=== PATIENT | female | born 1980 | race Caucasian/White ===

== ENCOUNTER 2018-09-04 13:14 | Emergency (ER) | payer OTHER, MEDICAID, SELFPAY ==
[2018-09-04 13:15] VITALS: BP 135/45; PULSE 92; RESP 15; TEMP 36.7; O2SAT 97; BMI 32.9
[2018-09-04 13:49] LABS: Add Manual Diff / Slide Review NO; Basophils Absolute Auto 100 /uL (0-100); Basophils Percent Auto 0.8 % (0-2); Eosinophils Absolute Auto 100 /uL (0-450); Eosinophils Percent Auto 1.8 % (2-4); Hemoglobin 13.2 g/dL (12.0-16.0); Lymphocytes Absolute Auto 2100 /uL (1100-4500); Lymphocytes Percent Auto 29.5 % (25-40); Mean Corpuscular HGB Conc 33.7 % (30-36); Mean Corpuscular Hemoglobin 30.7 PG (26-34); Mean Corpuscular Volume 91.1 fL (80-100); Monocytes Absolute Auto 400 /uL (0-900); Monocytes Percent Auto 5.2 % (3-14); Neutrophils Absolute Auto 4500 /uL (1500-7000); Neutrophils Percent Auto 62.7 % (50-75); Platelet Count 287 X10^3/uL (150-400); Red Blood Cell Count 4.28 X10^6/uL (4.0-5.2); Red Cell Distribution Width 13.1 % (11.6-14.8); White Blood Cell Count 7.2 X10^3/uL (4.5-11.0)
--- NOTE | 2018-09-04 13:52 | PC.NURSE ---
Records requested from [facility] as patient has been seen there for same 5 times in past few weeks
[2018-09-04 13:58] LABS: Urine Amphetamines Negative (Negative); Urine Barbiturates Negative (Negative); Urine Cocaine Negative (Negative); Urine MDMA Negative (Negative); Urine Methamphetamines Negative (Negative); Urine Morphine/Opi cutoff 2000 Negative (Negative); Urine Phencyclidine Negative (Negative); Urine Tetrahydrocannabinol Negative (Negative)
[2018-09-04 13:59] LABS: Urine Benzodiazepines Negative (Negative); Urine Methadone Negative (Negative); Urine Oxycodone Negative (Negative); Urine Tricyclic Antidepressant Negative (Negative)
[2018-09-04 14:01] LABS: Acetaminophen < 10 ug/mL (10-30); Alanine Aminotransferase 16 IU/L (9-52); Albumin Globulin Ratio 1.3 (1.0-2.8); Alkaline Phosphatase 68 U/L (38-126); Aspartate Aminotransferase 17 IU/L (14-36); Bilirubin Total 0.3 mg/dL (0.2-1.3); Blood Urea Nitrogen 7 mg/dL (7-17); Calcium 9.3 mg/dL (8.4-10.2); Carbon Dioxide 29 mmol/L (22-32); Chloride 102 mmol/L (98-107); Estimated Glomerular Filt Rate > 60.0 mL/min (>60); Ethanol (ETOH) < 10 mg/dL; Globulin 3.2 g/dL (1.7-4.1); Glucose 124 mg/dL (70-100); HEMOLYSIS < 15 (0-50); Potassium 3.9 mmol/L (3.4-5.1); Salicylate < 1.0 mg/dL (<20); Sodium 137 mmol/L (137-145); Total Protein 7.2 g/dL (6.3-8.2)
--- NOTE | 2018-09-04 14:03 | PC.NURSE ---
ROTARY SAW OPERATOR at bedside for evaluation
[2018-09-04 14:40] LABS: Thyroid Stimulating Hormone 1.02 uIU/mL (0.47-4.68)
--- NOTE | 2018-09-04 15:12 | CM.SWNOTE ---
DCP initial Assessment: CANCER PROGRAM CONSULTANT reviewed chart and met with pt to assess for voluntary psychiatric hospitalization. PCP: Pt does not have a PCP. Insurance: [employer] Pt presents to the ED expressing not feeling right in the head. This is her 6th presentation to the emergency room in the last week, having gone to the [place] ED 5-times last week, now here at [facility] for the same complaints. She denies suicidal ideation, drug or alcohol use. She was not found to be a candidate for inpt psych hospitalization by the DCR, Chris, in [place], and was offered outpatient behavioral health services, which she did not follow through on. She recently lost her housing, her child was taken into custody by CPS, she has no money or local friends/family. She presents as detached, flat affect, vague in interview. She is a poor historian and seems to lack insight into the factors which led up to the situation that she is now in. She has had 3-prior inpt hospitalizations in [place], however was not able to provide details, a diagnosis or medication history. She is not currently taking any medications at this time. Her goal is to get housing, a job, and to get her son back into her own custody. She feels that this not feeling right in the head is not consistent, but happens intermittently over time. Plan: [facility] is seeking crisis placement for stabilization. DCP pending. Discharge Planning/Care Management ED Crisis Response Assessment Start: 09/04/18 14:50 Freq: Status: Active Protocol: Document 09/04/18 14:50 [facility] (Rec: 09/04/18 15:11 DPL [id number]) ED Crisis Response Assessment CANCER PROGRAM CONSULTANT Assessment Type Mental Health Reason for CANCER PROGRAM CONSULTANT Referral Assess for suicidal ideation, voluntary MH hospitalization. Referred by ED provider, Brandi Del Rio Presenting Problem Pt presents to the ED stating she doesn't feel right in the head, and is requesting voluntary psychiatric placement. She is currently homeless, has been living in a longterm in [place] for the last week, however felt it was too noisy and crowded. She expresses feeling anxious and depressed, feeling that it 's situational. Mental health diagnosis Pt presents with flat affect, is vague in her responses to questions and seems a poor historian of recent events in her life. She states that she has had 3-prior psychiatric hospitalizations while living in [place], but would not discuss details. She is unable to remember any mental health diagnosis from those hospitalizations, and is not currently taking any psychiatric medications. She states that she had been on something previously, however it's been over a year since has taken any medications relating to depression/anxiety . She denies hallucinations, is oriented to self, place and time. She denies suicidal/ homicidal ideation. She denies any drug or alcohol use. [facility] check No: Pt was assesses by a DCR in [place], referred to Suicidal thoughts No Past Suicidal thoughts No Current Suicidal thoughts No Prior Suicide attempts No Current plan for self harm No Access to guns and weapons No Thoughts of harm to others No Past thoughts of harm to others No Current thoughts of harming others No Prior attempts to harm others No Current plan to harm others No Current Risk factors Recent trauma exposure Recent job loss Legal concerns Financial difficulties Marital and family difficulties Risk factor comments Pt recently relocated to [place] from [place] after visiting her brother in the area and decided she liked it. She moved with her 12-year old son, found an apartment and quickly lost it. She came to the area with no money, resources or plan. She was then homeless with her son, until he was taken away by CPS about 1-month ago. She presented to the ED at [facility] in [place] 5-times last week, each time seeking benzodiazapines, complaining of insomnia and not being able to sleep at the longterm. She asked repeatedly to be hospitalized in a psychiatric hospital maybe for a week. She has not expressed any suicidal ideation or intent to harm herself at any of these ED visits. 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 She states that she was dizzy, nauseous, and unable to work, thus she was fired. She has no money, no local friends or family, and is homeless. She has not followed up with community resources offered to her in [place]. In fact , she did not go to the scheduled behavioral health appt. that the ED staff had set-up for her. Relevant Medical History Pt denies any medical issues at this time, and is vague in providing any substantial history. Crisis Plan [facility] is seeking voluntary placement for pt, however it is not known if she will meet criteria for in patient placement. Resources Provided Crisis line phone number, local longterm information, possible placement if available bed is found and she is accepted for admission. Additional Comment D/C plan is process. ED Psychiatric Symptoms Assessment Start: 09/04/18 13:22 Freq: Status: Active Protocol: Document 09/04/18 13:25 [facility] (Rec: 09/04/18 13:42 [facility] [id number]) Psychiatric Symptoms Assessment Symptoms/Complaint States nausea nad I dont feel right. I need to be admitted somewhere Duration Constant History Of Same Yes Context Unknown Improves With Nothing Worsens With Nothing Associated Symptoms Denies Other Symptoms Details of Plan Denies SI or HI. States simply that she doesnt feel right. Nauseated and feels confused. Wants inpatient stay as thinks that will be helpful Level of Consciousness Alert Appropriate Awake Patient Orientation Name Age Birthday Month Date Year Day of Week Place Situation Patient Behavior/[place]ood [place] Ability to Follow Directions Excellent Patient Cognition Impaired No Affect Description Calm [place] Patient Appearance Well Groomed Hallucination Type None Depressive Symptoms Insomnia Feelings of Hopelessness No Suicidal Ideation None Homicidal Ideation None Nausea/Vomiting Nauseated
--- NOTE | 2018-09-04 16:12 | ED.PSYCH ---
HPI - Psych <SAE Herron - Last Filed: 09/04/18 21:15> General Chief Complaint: Psychiatric Symptoms Stated Complaint: does not feel well Time Seen by Provider: 09/04/18 13:40 Source: patient Mode of arrival: ambulatory Limitations: no limitations History of Present Illness HPI Narrative: The patient is a 37-year-old female with history of depression who presents with a chief complaint of not feeling well. She is concerned that her depression is worse and she needs to be inpatient. She was seen several times recently added outside medical facility at [place]. She denies any fevers nausea vomiting or diarrhea. She denies any thoughts of self-harm, suicidal ideations homicidal ideations. She denies any suicidal plan or homicidal plan. She denies any illicit drug use, denies alcohol use. She states she feels fatigued, and just that she ?does not feel well and needs inpatient help.She is able to contract for safety in the ER. Current stressors include moving, losing custody of her child, and losing her home. Related Data Home Medications Medication Instructions Recorded Confirmed No Known Home Medications 09/04/18 09/04/18 Allergies Allergy/AdvReac Type Severity Reaction Status Date / Time No Known Drug Allergies Allergy Verified 09/04/18 13:29 Review of Systems <SAE Herron - Last Filed: 09/04/18 21:15> Review of Systems GENERAL: Denies chills, fatigue, malaise, fever, sweats. HEENT: Denies sinus pain, ear pain, sore throat, difficulty swallowing, dizziness. RESPIRATORY: Denies dyspnea, cough, wheezing, hemoptysis, sputum. CARDIOVASCULAR: Denies chest pain, palpitations, orthopnea, edema, GASTROINTESTINAL: Denies nausea, vomiting, abdominal pain, diarrhea, constipation, melena. : Denies dysuria, frequency, incontinence, hematuria, urinary retention. MUSCULOSKELETAL: denies weakness, joint pain, or bony pain SKIN: Denies rash, skin lesions, or other NEUROLOGIC: Denies weakness, headache, numbness, change in speech, confusion, seizures, incoordination. PSYCHIATRIC: See HPI 12 point review of systems is negative except for those stated above PFSH <OVIDIO Herron - Last Filed: 09/04/18 21:15> Medical History (Updated 09/04/18 @ 21:46 by SAE Herron) Depression (Acute) Social History Smoking Status: Never smoker Social History Smoking Status: Never smoker Exam <SEA Herron - Last Filed: 09/04/18 21:15> Narrative Exam Narrative: GENERAL: Obese female lying on stretcher in no acute distress HEAD: Atraumatic. Normocephalic. No temporal or scalp tenderness. EYES: Pupils equal round and reactive. Extraocular motions intact. No scleral icterus. No injection or drainage. ENT: Nose without bleeding, purulent drainage or septal hematoma. Throat without erythema, tonsillar hypertrophy or exudate. Uvula midline. Airway patent. NECK: Trachea midline. No JVD or lymphadenopathy. Supple, nontender, no meningeal signs. CARDIOVASCULAR: Regular rate and rhythm without murmurs, gallops, or rubs. RESPIRATORY: Clear to auscultation. Breath sounds equal bilaterally. No wheezes, rales, or rhonchi. No cough. No increased respiratory effort. No accessory muscle use. GASTROINTESTINAL: Abdomen soft, non-tender, nondistended. No hepato-splenomegaly, or palpable masses. No guarding. EXTREMITIES: No clubbing, cyanosis, or edema. No joint tenderness, effusion, or edema noted. BACK: Nontender without deformity or crepitance. No flank tenderness. NEURO: AOx3. Denies SI, denies HI SKIN: No rash or erythema. Initial Vital Signs Initial Vital Signs: Vital Signs Temperature 98.1 F 09/04/18 13:15 Pulse Rate 92 H 09/04/18 13:15 Respiratory Rate 15 09/04/18 13:15 Blood Pressure 135/45 L 09/04/18 13:15 Pulse Oximetry 97 09/04/18 13:15 <Lucrecia Diego DO - Last Filed: 09/05/18 00:15> Initial Vital Signs Initial Vital Signs: Vital Signs Temperature 98.1 F 09/04/18 13:15 Pulse Rate 92 H 09/04/18 13:15 Respiratory Rate 15 09/04/18 13:15 Blood Pressure 135/45 L 09/04/18 13:15 Pulse Oximetry 97 09/04/18 13:15 Course <SAE Herron - Last Filed: 09/04/18 21:15> Orders Ordered: ED Orders 09/04/18 18:42 EKG-12 Lead Stat Discontinued Medications Hydroxyzine Pamoate (Vistaril) 50 mg PO NOW ONE Stop: 09/04/18 17:15 Last Admin: 09/04/18 17:17 Dose: 50 mg Vital Signs - 8 hr 09/04/18 18:43 09/04/18 22:15 Pulse Rate 86 107 H Respiratory Rate 16 16 Blood Pressure [Left Arm] 115/73 140/88 Pulse Oximetry 99 100 <Lucrecia Diego DO - Last Filed: 09/05/18 00:15> Orders Ordered: ED Orders 09/04/18 18:42 EKG-12 Lead Stat Discontinued Medications Hydroxyzine Pamoate (Vistaril) 50 mg PO NOW ONE Stop: 09/04/18 17:15 Last Admin: 09/04/18 17:17 Dose: 50 mg Vital Signs - 8 hr 09/04/18 18:43 09/04/18 22:15 Pulse Rate 86 107 H Respiratory Rate 16 16 Blood Pressure [Left Arm] 115/73 140/88 Pulse Oximetry 99 100 MDM - Psych <SAE Herron - Last Filed: 09/04/18 21:15> Lab Data Result diagrams: 09/04/18 13:42 09/04/18 13:42 Lab Results 09/04/18 09/04/18 09/04/18 Range/Units 13:42 13:42 13:42 WBC 7.2 (4.5-11.0) X10^3/uL RBC 4.28 (4.0-5.2) X10^6/uL Hgb 13.2 (12.0-16.0) g/dL Hct 39.0 (36-46) % MCV 91.1 (80-100) fL MCH 30.7 (26-34) PG MCHC 33.7 (30-36) % RDW 13.1 (11.6-14.8) % Plt Count 287 (150-400) X10^3/uL Neut % (Auto) 62.7 (50-75) % Lymph % (Auto) 29.5 (25-40) % [place] % (Auto) 5.2 (3-14) % Eos % (Auto) 1.8 L (2-4) % Baso % (Auto) 0.8 (0-2) % Neut # (Auto) 4500 (7963-3425) /uL Lymph # (Auto) 2100 (1415-4423) /uL [place] # (Auto) 400 (0-900) /uL Eos # (Auto) 100 (0-450) /uL Baso # (Auto) 100 (0-100) /uL Sodium 137 (137-145) mmol/L Potassium 3.9 (3.4-5.1) mmol/L Chloride 102 (98-107) mmol/L Carbon Dioxide 29 (22-32) mmol/L BUN 7 (7-17) mg/dL Creatinine 0.70 (0.52-1.04) mg/dL Estimated GFR > 60.0 (>60) mL/min BUN/Creatinine Ratio 10.0 (6-22) Glucose 124 H (70-100) mg/dL Calcium 9.3 (8.4-10.2) mg/dL Total Bilirubin 0.3 (0.2-1.3) mg/dL AST 17 (14-36) IU/L ALT 16 (9-52) IU/L Alkaline Phosphatase 68 (38-126) U/L Total Protein 7.2 (6.3-8.2) g/dL Albumin 4.0 (3.5-5.0) g/dL Globulin 3.2 (1.7-4.1) g/dL Albumin/Globulin Ratio 1.3 (1.0-2.8) TSH 1.02 (0.47-4.68) uIU/mL Free T4 1.00 (0.78-2.19) ng/dL Salicylates < 1.0 (<20) mg/dL Urine Opiates Screen (Negative) Ur Oxycodone Screen (Negative) Urine Methadone Screen (Negative) Acetaminophen < 10 L (10-30) ug/mL Ur Barbiturates Screen (Negative) U Tricyclic Antidepress (Negative) Ur Phencyclidine Scrn (Negative) Ur Amphetamines Screen (Negative) U Methamphetamines Scrn (Negative) Ur MDMA Scrn (Ecstasy) (Negative) U Benzodiazepines Scrn (Negative) Urine Cocaine Screen (Negative) U Marijuana (THC) Screen (Negative) Ethyl Alcohol < 10 mg/dL 09/04/18 Range/Units 13:50 WBC (4.5-11.0) X10^3/uL RBC (4.0-5.2) X10^6/uL Hgb (12.0-16.0) g/dL Hct (36-46) % MCV (80-100) fL MCH (26-34) PG MCHC (30-36) % RDW (11.6-14.8) % Plt Count (150-400) X10^3/uL Neut % (Auto) (50-75) % Lymph % (Auto) (25-40) % [place] % (Auto) (3-14) % Eos % (Auto) (2-4) % Baso % (Auto) (0-2) % Neut # (Auto) (0714-5885) /uL Lymph # (Auto) (5498-6547) /uL [place] # (Auto) (0-900) /uL Eos # (Auto) (0-450) /uL Baso # (Auto) (0-100) /uL Sodium (137-145) mmol/L Potassium (3.4-5.1) mmol/L Chloride (98-107) mmol/L Carbon Dioxide (22-32) mmol/L BUN (7-17) mg/dL Creatinine (0.52-1.04) mg/dL Estimated GFR (>60) mL/min BUN/Creatinine Ratio (6-22) Glucose (70-100) mg/dL Calcium (8.4-10.2) mg/dL Total Bilirubin (0.2-1.3) mg/dL AST (14-36) IU/L ALT (9-52) IU/L Alkaline Phosphatase (38-126) U/L Total Protein (6.3-8.2) g/dL Albumin (3.5-5.0) g/dL Globulin (1.7-4.1) g/dL Albumin/Globulin Ratio (1.0-2.8) TSH (0.47-4.68) uIU/mL Free T4 (0.78-2.19) ng/dL Salicylates (<20) mg/dL Urine Opiates Screen Negative (Negative) Ur Oxycodone Screen Negative (Negative) Urine Methadone Screen Negative (Negative) Acetaminophen (10-30) ug/mL Ur Barbiturates Screen Negative (Negative) U Tricyclic Antidepress Negative (Negative) Ur Phencyclidine Scrn Negative (Negative) Ur Amphetamines Screen Negative (Negative) U Methamphetamines Scrn Negative (Negative) Ur MDMA Scrn (Ecstasy) Negative (Negative) U Benzodiazepines Scrn Negative (Negative) Urine Cocaine Screen Negative (Negative) U Marijuana (THC) Screen Negative (Negative) Ethyl Alcohol mg/dL Point of Care Testing Test Results Negative Urine Dip Bedside Urine Glucose Negative Bedside Urine Bilirubin - Negative Bedside Urine Ketone - Negative Urine Specific Roslyn 1.015 Bedside Urine Occult Blood - Negative Bedside Urine pH 8.0 Bedside Urine Protein - Negative Bedside Urine Urobilinogen - Negative Bedside Urine Nitrite - Negative Bedside Urine Leukocytes - Negative Esterase MDM Narrative Medical decision making narrative: The patient is a 37-year-old female with history of depression presents requesting inpatient stay for her depression. She was medically cleared, with a negative tox screen. Virgen, the drug abuse social worker and the department spend a great deal of time working with the patient and trying to find her placement as the patient would like help for her depression. It is reassuring that she does not have any suicidal thoughts at this time. However it is concerning that she has some any increased stressors. Social work was able to place the patient at [facility]. She was safe throughout her stay in the emergency department. She was given food, drink and a dose of Vistaril for anxiety. She is happy that she is going inpatient. Transportation was arranged to depart the emergency department at 10:15 p.m. florentino. <Lucrecia Diego, DO - Last Filed: 09/05/18 00:15> Lab Data Lab Results 09/04/18 09/04/18 09/04/18 Range/Units 13:42 13:42 13:42 WBC 7.2 (4.5-11.0) X10^3/uL RBC 4.28 (4.0-5.2) X10^6/uL Hgb 13.2 (12.0-16.0) g/dL Hct 39.0 (36-46) % MCV 91.1 (80-100) fL MCH 30.7 (26-34) PG MCHC 33.7 (30-36) % RDW 13.1 (11.6-14.8) % Plt Count 287 (150-400) X10^3/uL Neut % (Auto) 62.7 (50-75) % Lymph % (Auto) 29.5 (25-40) % [place] % (Auto) 5.2 (3-14) % Eos % (Auto) 1.8 L (2-4) % Baso % (Auto) 0.8 (0-2) % Neut # (Auto) 4500 (8894-5251) /uL Lymph # (Auto) 2100 (3820-0137) /uL [place] # (Auto) 400 (0-900) /uL Eos # (Auto) 100 (0-450) /uL Baso # (Auto) 100 (0-100) /uL Sodium 137 (137-145) mmol/L Potassium 3.9 (3.4-5.1) mmol/L Chloride 102 (98-107) mmol/L Carbon Dioxide 29 (22-32) mmol/L BUN 7 (7-17) mg/dL Creatinine 0.70 (0.52-1.04) mg/dL Estimated GFR > 60.0 (>60) mL/min BUN/Creatinine Ratio 10.0 (6-22) Glucose 124 H (70-100) mg/dL Calcium 9.3 (8.4-10.2) mg/dL Total Bilirubin 0.3 (0.2-1.3) mg/dL AST 17 (14-36) IU/L ALT 16 (9-52) IU/L Alkaline Phosphatase 68 (38-126) U/L Total Protein 7.2 (6.3-8.2) g/dL Albumin 4.0 (3.5-5.0) g/dL Globulin 3.2 (1.7-4.1) g/dL Albumin/Globulin Ratio 1.3 (1.0-2.8) TSH 1.02 (0.47-4.68) uIU/mL Free T4 1.00 (0.78-2.19) ng/dL Salicylates < 1.0 (<20) mg/dL Urine Opiates Screen (Negative) Ur Oxycodone Screen (Negative) Urine Methadone Screen (Negative) Acetaminophen < 10 L (10-30) ug/mL Ur Barbiturates Screen (Negative) U Tricyclic Antidepress (Negative) Ur Phencyclidine Scrn (Negative) Ur Amphetamines Screen (Negative) U Methamphetamines Scrn (Negative) Ur MDMA Scrn (Ecstasy) (Negative) U Benzodiazepines Scrn (Negative) Urine Cocaine Screen (Negative) U Marijuana (THC) Screen (Negative) Ethyl Alcohol < 10 mg/dL 09/04/18 Range/Units 13:50 WBC (4.5-11.0) X10^3/uL RBC (4.0-5.2) X10^6/uL Hgb (12.0-16.0) g/dL Hct (36-46) % MCV (80-100) fL MCH (26-34) PG MCHC (30-36) % RDW (11.6-14.8) % Plt Count (150-400) X10^3/uL Neut % (Auto) (50-75) % Lymph % (Auto) (25-40) % [place] % (Auto) (3-14) % Eos % (Auto) (2-4) % Baso % (Auto) (0-2) % Neut # (Auto) (5598-1842) /uL Lymph # (Auto) (9049-8931) /uL [place] # (Auto) (0-900) /uL Eos # (Auto) (0-450) /uL Baso # (Auto) (0-100) /uL Sodium (137-145) mmol/L Potassium (3.4-5.1) mmol/L Chloride (98-107) mmol/L Carbon Dioxide (22-32) mmol/L BUN (7-17) mg/dL Creatinine (0.52-1.04) mg/dL Estimated GFR (>60) mL/min BUN/Creatinine Ratio (6-22) Glucose (70-100) mg/dL Calcium (8.4-10.2) mg/dL Total Bilirubin (0.2-1.3) mg/dL AST (14-36) IU/L ALT (9-52) IU/L Alkaline Phosphatase (38-126) U/L Total Protein (6.3-8.2) g/dL Albumin (3.5-5.0) g/dL Globulin (1.7-4.1) g/dL Albumin/Globulin Ratio (1.0-2.8) TSH (0.47-4.68) uIU/mL Free T4 (0.78-2.19) ng/dL Salicylates (<20) mg/dL Urine Opiates Screen Negative (Negative) Ur Oxycodone Screen Negative (Negative) Urine Methadone Screen Negative (Negative) Acetaminophen (10-30) ug/mL Ur Barbiturates Screen Negative (Negative) U Tricyclic Antidepress Negative (Negative) Ur Phencyclidine Scrn Negative (Negative) Ur Amphetamines Screen Negative (Negative) U Methamphetamines Scrn Negative (Negative) Ur MDMA Scrn (Ecstasy) Negative (Negative) U Benzodiazepines Scrn Negative (Negative) Urine Cocaine Screen Negative (Negative) U Marijuana (THC) Screen Negative (Negative) Ethyl Alcohol mg/dL Point of Care Testing Test Results Negative Urine Dip Bedside Urine Glucose Negative Bedside Urine Bilirubin - Negative Bedside Urine Ketone - Negative Urine Specific Roslyn 1.015 Bedside Urine Occult Blood - Negative Bedside Urine pH 8.0 Bedside Urine Protein - Negative Bedside Urine Urobilinogen - Negative Bedside Urine Nitrite - Negative Bedside Urine Leukocytes - Negative Esterase Discharge Plan Departure Patient Disposition: Xfer Psychiatric Hosp Clinical Impression: Depression Qualifiers: Depression Type: unspecified Qualified Code(s): F32.9 - Major depressive disorder, single episode, unspecified Discharge Date/Time: 09/04/18 22:27 Interventions: ED Discharge Assessment Last Done: 09/04/18 22:26 <Lucrecia Diego DO - Last Filed: 09/05/18 00:15> Cosign ED Attending Avis Attestation: I was immediately available in the department for consultation. Documentation has been reviewed. I agree with assessment and plan.
--- NOTE | 2018-09-04 16:15 | ED_ITS ---
HPI - Psych <ASE Herron - Last Filed: 09/04/18 21:15> General Chief Complaint: Psychiatric Symptoms Stated Complaint: does not feel well Time Seen by Provider: 09/04/18 13:40 Source: patient Mode of arrival: ambulatory Limitations: no limitations History of Present Illness HPI Narrative: The patient is a 37-year-old female with history of depression who presents with a chief complaint of not feeling well. She is concerned that her depression is worse and she needs to be inpatient. She was seen several times recently added outside medical facility at [place]. She denies any fevers nausea vomiting or diarrhea. She denies any thoughts of self-harm, suicidal ideations homicidal ideations. She denies any suicidal plan or homicidal plan. She denies any illicit drug use, denies alcohol use. She states she feels fatigued, and just that she ?does not feel well and needs inpatient help.She is able to contract for safety in the ER. Current stressors include moving, losing custody of her child, and losing her home. Related Data Home Medications Medication Instructions Recorded Confirmed No Known Home Medications 09/04/18 09/04/18 Allergies Allergy/AdvReac Type Severity Reaction Status Date / Time No Known Drug Allergies Allergy Verified 09/04/18 13:29 Review of Systems <SAE Herron - Last Filed: 09/04/18 21:15> Review of Systems GENERAL: Denies chills, fatigue, malaise, fever, sweats. HEENT: Denies sinus pain, ear pain, sore throat, difficulty swallowing, dizziness. RESPIRATORY: Denies dyspnea, cough, wheezing, hemoptysis, sputum. CARDIOVASCULAR: Denies chest pain, palpitations, orthopnea, edema, GASTROINTESTINAL: Denies nausea, vomiting, abdominal pain, diarrhea, constipation, melena. : Denies dysuria, frequency, incontinence, hematuria, urinary retention. MUSCULOSKELETAL: denies weakness, joint pain, or bony pain SKIN: Denies rash, skin lesions, or other NEUROLOGIC: Denies weakness, headache, numbness, change in speech, confusion, seizures, incoordination. PSYCHIATRIC: See HPI 12 point review of systems is negative except for those stated above PFSH <OVIDIO Herron - Last Filed: 09/04/18 21:15> Medical History (Updated 09/04/18 @ 21:46 by SAE Herron) Depression (Acute) Social History Smoking Status: Never smoker Social History Smoking Status: Never smoker Exam <SAE Herron - Last Filed: 09/04/18 21:15> Narrative Exam Narrative: GENERAL: Obese female lying on stretcher in no acute distress HEAD: Atraumatic. Normocephalic. No temporal or scalp tenderness. EYES: Pupils equal round and reactive. Extraocular motions intact. No scleral icterus. No injection or drainage. ENT: Nose without bleeding, purulent drainage or septal hematoma. Throat without erythema, tonsillar hypertrophy or exudate. Uvula midline. Airway patent. NECK: Trachea midline. No JVD or lymphadenopathy. Supple, nontender, no meningeal signs. CARDIOVASCULAR: Regular rate and rhythm without murmurs, gallops, or rubs. RESPIRATORY: Clear to auscultation. Breath sounds equal bilaterally. No wheezes, rales, or rhonchi. No cough. No increased respiratory effort. No accessory muscle use. GASTROINTESTINAL: Abdomen soft, non-tender, nondistended. No hepato- splenomegaly, or palpable masses. No guarding. EXTREMITIES: No clubbing, cyanosis, or edema. No joint tenderness, effusion, or edema noted. BACK: Nontender without deformity or crepitance. No flank tenderness. NEURO: AOx3. Denies SI, denies HI SKIN: No rash or erythema. Initial Vital Signs Initial Vital Signs: Vital Signs Temperature 98.1 F 09/04/18 13:15 Pulse Rate 92 H 09/04/18 13:15 Respiratory Rate 15 09/04/18 13:15 Blood Pressure 135/45 L 09/04/18 13:15 Pulse Oximetry 97 09/04/18 13:15 <Lucrecia Diego DO - Last Filed: 09/05/18 00:15> Initial Vital Signs Initial Vital Signs: Vital Signs Temperature 98.1 F 09/04/18 13:15 Pulse Rate 92 H 09/04/18 13:15 Respiratory Rate 15 09/04/18 13:15 Blood Pressure 135/45 L 09/04/18 13:15 Pulse Oximetry 97 09/04/18 13:15 Course <SAE Herron - Last Filed: 09/04/18 21:15> Orders Ordered: ED Orders 09/04/18 18:42 EKG-12 Lead Stat Discontinued Medications Hydroxyzine Pamoate (Vistaril) 50 mg PO NOW ONE Stop: 09/04/18 17:15 Last Admin: 09/04/18 17:17 Dose: 50 mg Vital Signs - 8 hr 09/04/18 18:43 09/04/18 22:15 Pulse Rate 86 107 H Respiratory Rate 16 16 Blood Pressure [Left Arm] 115/73 140/88 Pulse Oximetry 99 100 <Lucrecia Diego DO - Last Filed: 09/05/18 00:15> Orders Ordered: ED Orders 09/04/18 18:42 EKG-12 Lead Stat Discontinued Medications Hydroxyzine Pamoate (Vistaril) 50 mg PO NOW ONE Stop: 09/04/18 17:15 Last Admin: 09/04/18 17:17 Dose: 50 mg Vital Signs - 8 hr 09/04/18 18:43 09/04/18 22:15 Pulse Rate 86 107 H Respiratory Rate 16 16 Blood Pressure [Left Arm] 115/73 140/88 Pulse Oximetry 99 100 MDM - Psych <SAE Herron - Last Filed: 09/04/18 21:15> Lab Data Result diagrams: 09/04/18 13:42 09/04/18 13:42 Lab Results 09/04/18 09/04/18 09/04/18 Range/Units 13:42 13:42 13:42 WBC 7.2 (4.5-11.0) X10^3/uL RBC 4.28 (4.0-5.2) X10^6/uL Hgb 13.2 (12.0-16.0) g/dL Hct 39.0 (36-46) % MCV 91.1 (80-100) fL MCH 30.7 (26-34) PG MCHC 33.7 (30-36) % RDW 13.1 (11.6-14.8) % Plt Count 287 (150-400) X10^3/uL Neut % (Auto) 62.7 (50-75) % Lymph % (Auto) 29.5 (25-40) % Dale % (Auto) 5.2 (3-14) % Eos % (Auto) 1.8 L (2-4) % Baso % (Auto) 0.8 (0-2) % Neut # (Auto) 4500 (0367-3217) /uL Lymph # (Auto) 2100 (2921-9571) /uL Dale # (Auto) 400 (0-900) /uL Eos # (Auto) 100 (0-450) /uL Baso # (Auto) 100 (0-100) /uL Sodium 137 (137-145) mmol/L Potassium 3.9 (3.4-5.1) mmol/L Chloride 102 (98-107) mmol/L Carbon Dioxide 29 (22-32) mmol/L BUN 7 (7-17) mg/dL Creatinine 0.70 (0.52-1.04) mg/dL Estimated GFR > 60.0 (>60) mL/min BUN/Creatinine Ratio 10.0 (6-22) Glucose 124 H (70-100) mg/dL Calcium 9.3 (8.4-10.2) mg/dL Total Bilirubin 0.3 (0.2-1.3) mg/dL AST 17 (14-36) IU/L ALT 16 (9-52) IU/L Alkaline Phosphatase 68 (38-126) U/L Total Protein 7.2 (6.3-8.2) g/dL Albumin 4.0 (3.5-5.0) g/dL Globulin 3.2 (1.7-4.1) g/dL Albumin/Globulin Ratio 1.3 (1.0-2.8) TSH 1.02 (0.47-4.68) uIU/mL Free T4 1.00 (0.78-2.19) ng/dL Salicylates < 1.0 (<20) mg/dL Urine Opiates Screen (Negative) Ur Oxycodone Screen (Negative) Urine Methadone Screen (Negative) Acetaminophen < 10 L (10-30) ug/mL Ur Barbiturates Screen (Negative) U Tricyclic Antidepress (Negative) Ur Phencyclidine Scrn (Negative) Ur Amphetamines Screen (Negative) U Methamphetamines Scrn (Negative) Ur MDMA Scrn (Ecstasy) (Negative) U Benzodiazepines Scrn (Negative) Urine Cocaine Screen (Negative) U Marijuana (THC) Screen (Negative) Ethyl Alcohol < 10 mg/dL 09/04/18 Range/Units 13:50 WBC (4.5-11.0) X10^3/uL RBC (4.0-5.2) X10^6/uL Hgb (12.0-16.0) g/dL Hct (36-46) % MCV (80-100) fL MCH (26-34) PG MCHC (30-36) % RDW (11.6-14.8) % Plt Count (150-400) X10^3/uL Neut % (Auto) (50-75) % Lymph % (Auto) (25-40) % Dale % (Auto) (3-14) % Eos % (Auto) (2-4) % Baso % (Auto) (0-2) % Neut # (Auto) (8947-6766) /uL Lymph # (Auto) (5453-0855) /uL Dale # (Auto) (0-900) /uL Eos # (Auto) (0-450) /uL Baso # (Auto) (0-100) /uL Sodium (137-145) mmol/L Potassium (3.4-5.1) mmol/L Chloride (98-107) mmol/L Carbon Dioxide (22-32) mmol/L BUN (7-17) mg/dL Creatinine (0.52-1.04) mg/dL Estimated GFR (>60) mL/min BUN/Creatinine Ratio (6-22) Glucose (70-100) mg/dL Calcium (8.4-10.2) mg/dL Total Bilirubin (0.2-1.3) mg/dL AST (14-36) IU/L ALT (9-52) IU/L Alkaline Phosphatase (38-126) U/L Total Protein (6.3-8.2) g/dL Albumin (3.5-5.0) g/dL Globulin (1.7-4.1) g/dL Albumin/Globulin Ratio (1.0-2.8) TSH (0.47-4.68) uIU/mL Free T4 (0.78-2.19) ng/dL Salicylates (<20) mg/dL Urine Opiates Screen Negative (Negative) Ur Oxycodone Screen Negative (Negative) Urine Methadone Screen Negative (Negative) Acetaminophen (10-30) ug/mL Ur Barbiturates Screen Negative (Negative) U Tricyclic Antidepress Negative (Negative) Ur Phencyclidine Scrn Negative (Negative) Ur Amphetamines Screen Negative (Negative) U Methamphetamines Scrn Negative (Negative) Ur MDMA Scrn (Ecstasy) Negative (Negative) U Benzodiazepines Scrn Negative (Negative) Urine Cocaine Screen Negative (Negative) U Marijuana (THC) Screen Negative (Negative) Ethyl Alcohol mg/dL Point of Care Testing Test Results Negative Urine Dip Bedside Urine Glucose Negative Bedside Urine Bilirubin - Negative Bedside Urine Ketone - Negative Urine Specific [place] 1.015 Bedside Urine Occult Blood - Negative Bedside Urine pH 8.0 Bedside Urine Protein - Negative Bedside Urine Urobilinogen - Negative Bedside Urine Nitrite - Negative Bedside Urine Leukocytes - Negative Esterase MDM Narrative Medical decision making narrative: The patient is a 37-year-old female with history of depression presents requesting inpatient stay for her depression. She was medically cleared, with a negative tox screen. Virgen, the social psychologist and the department spend a great deal of time working with the patient and trying to find her placement as the patient would like help for her depression. It is reassuring that she does not have any suicidal thoughts at this time. However it is concerning that she has some any increased stressors. Social work was able to place the patient at [facility]. She was safe throughout her stay in the emergency department. She was given food, drink and a dose of Vistaril for anxiety. She is happy that she is going inpatient. Transportation was arranged to depart the emergency department at 10:15 p.m. florentino. <Lucrecia Diego, DO - Last Filed: 09/05/18 00:15> Lab Data Lab Results 09/04/18 09/04/18 09/04/18 Range/Units 13:42 13:42 13:42 WBC 7.2 (4.5-11.0) X10^3/uL RBC 4.28 (4.0-5.2) X10^6/uL Hgb 13.2 (12.0-16.0) g/dL Hct 39.0 (36-46) % MCV 91.1 (80-100) fL MCH 30.7 (26-34) PG MCHC 33.7 (30-36) % RDW 13.1 (11.6-14.8) % Plt Count 287 (150-400) X10^3/uL Neut % (Auto) 62.7 (50-75) % Lymph % (Auto) 29.5 (25-40) % Dale % (Auto) 5.2 (3-14) % Eos % (Auto) 1.8 L (2-4) % Baso % (Auto) 0.8 (0-2) % Neut # (Auto) 4500 (8129-3760) /uL Lymph # (Auto) 2100 (7093-9441) /uL Dale # (Auto) 400 (0-900) /uL Eos # (Auto) 100 (0-450) /uL Baso # (Auto) 100 (0-100) /uL Sodium 137 (137-145) mmol/L Potassium 3.9 (3.4-5.1) mmol/L Chloride 102 (98-107) mmol/L Carbon Dioxide 29 (22-32) mmol/L BUN 7 (7-17) mg/dL Creatinine 0.70 (0.52-1.04) mg/dL Estimated GFR > 60.0 (>60) mL/min BUN/Creatinine Ratio 10.0 (6-22) Glucose 124 H (70-100) mg/dL Calcium 9.3 (8.4-10.2) mg/dL Total Bilirubin 0.3 (0.2-1.3) mg/dL AST 17 (14-36) IU/L ALT 16 (9-52) IU/L Alkaline Phosphatase 68 (38-126) U/L Total Protein 7.2 (6.3-8.2) g/dL Albumin 4.0 (3.5-5.0) g/dL Globulin 3.2 (1.7-4.1) g/dL Albumin/Globulin Ratio 1.3 (1.0-2.8) TSH 1.02 (0.47-4.68) uIU/mL Free T4 1.00 (0.78-2.19) ng/dL Salicylates < 1.0 (<20) mg/dL Urine Opiates Screen (Negative) Ur Oxycodone Screen (Negative) Urine Methadone Screen (Negative) Acetaminophen < 10 L (10-30) ug/mL Ur Barbiturates Screen (Negative) U Tricyclic Antidepress (Negative) Ur Phencyclidine Scrn (Negative) Ur Amphetamines Screen (Negative) U Methamphetamines Scrn (Negative) Ur MDMA Scrn (Ecstasy) (Negative) U Benzodiazepines Scrn (Negative) Urine Cocaine Screen (Negative) U Marijuana (THC) Screen (Negative) Ethyl Alcohol < 10 mg/dL 09/04/18 Range/Units 13:50 WBC (4.5-11.0) X10^3/uL RBC (4.0-5.2) X10^6/uL Hgb (12.0-16.0) g/dL Hct (36-46) % MCV (80-100) fL MCH (26-34) PG MCHC (30-36) % RDW (11.6-14.8) % Plt Count (150-400) X10^3/uL Neut % (Auto) (50-75) % Lymph % (Auto) (25-40) % Dale % (Auto) (3-14) % Eos % (Auto) (2-4) % Baso % (Auto) (0-2) % Neut # (Auto) (9866-3712) /uL Lymph # (Auto) (1014-6769) /uL Dale # (Auto) (0-900) /uL Eos # (Auto) (0-450) /uL Baso # (Auto) (0-100) /uL Sodium (137-145) mmol/L Potassium (3.4-5.1) mmol/L Chloride (98-107) mmol/L Carbon Dioxide (22-32) mmol/L BUN (7-17) mg/dL Creatinine (0.52-1.04) mg/dL Estimated GFR (>60) mL/min BUN/Creatinine Ratio (6-22) Glucose (70-100) mg/dL Calcium (8.4-10.2) mg/dL Total Bilirubin (0.2-1.3) mg/dL AST (14-36) IU/L ALT (9-52) IU/L Alkaline Phosphatase (38-126) U/L Total Protein (6.3-8.2) g/dL Albumin (3.5-5.0) g/dL Globulin (1.7-4.1) g/dL Albumin/Globulin Ratio (1.0-2.8) TSH (0.47-4.68) uIU/mL Free T4 (0.78-2.19) ng/dL Salicylates (<20) mg/dL Urine Opiates Screen Negative (Negative) Ur Oxycodone Screen Negative (Negative) Urine Methadone Screen Negative (Negative) Acetaminophen (10-30) ug/mL Ur Barbiturates Screen Negative (Negative) U Tricyclic Antidepress Negative (Negative) Ur Phencyclidine Scrn Negative (Negative) Ur Amphetamines Screen Negative (Negative) U Methamphetamines Scrn Negative (Negative) Ur MDMA Scrn (Ecstasy) Negative (Negative) U Benzodiazepines Scrn Negative (Negative) Urine Cocaine Screen Negative (Negative) U Marijuana (THC) Screen Negative (Negative) Ethyl Alcohol mg/dL Point of Care Testing Test Results Negative Urine Dip Bedside Urine Glucose Negative Bedside Urine Bilirubin - Negative Bedside Urine Ketone - Negative Urine Specific [place] 1.015 Bedside Urine Occult Blood - Negative Bedside Urine pH 8.0 Bedside Urine Protein - Negative Bedside Urine Urobilinogen - Negative Bedside Urine Nitrite - Negative Bedside Urine Leukocytes - Negative Esterase Discharge Plan Departure Patient Disposition: Xfer Psychiatric Hosp Clinical Impression: Depression Qualifiers: Depression Type: unspecified Qualified Code(s): F32.9 - Major depressive disorder, single episode, unspecified Discharge Date/Time: 09/04/18 22:27 Interventions: ED Discharge Assessment Last Done: 09/04/18 22:26 <Lucrecia Diego DO - Last Filed: 09/05/18 00:15> Cosign ED Attending Avis Attestation: I was immediately available in the department for consultation. Documentation has been reviewed. I agree with assessment and plan.
[2018-09-04] MEDS: hydrOXYzine pamoate 25 MG CAPSULE 50 MG PO (17:17)
[2018-09-04 18:43] VITALS: BP 115/73; PULSE 86; RESP 16; O2SAT 99
--- NOTE | 2018-09-04 19:01 | CM.SWNOTE ---
DCP Cont: Pt has been accepted for inpt, voluntary psychiatric placement at [facility]. They will be able to admit her at 11:00PM tonight, BLS transport has been set-up, ETA is 10:15PM. Pt is in agreement and undstands this plan.
[2018-09-04 22:15] VITALS: BP 140/88; PULSE 107; RESP 16; O2SAT 100
== END 2018-09-04 22:27 ==
PROVIDERS: Emergency Provider Nurse Practitioner Family
DX: F32.9 Major depressive disorder, single episode, unspecified (principal); R00.0 Tachycardia, unspecified
CPT/HCPCS: 36415; 80053; 80305; 80320; 80329; 81003; 81025; 84439; 84443; 85025; 93005; 99283; 99284; G0480